=== PATIENT | female | born 1980 | race Hispanic/Latino ===

== ENCOUNTER 2016-11-02 16:26 | Emergency (ER) | payer SELFPAY ==
[2016-11-02] MEDS ORDERED: FENTANYL 250 MCG/5 ML VIAL ONE (16:58)
[2016-11-02] MEDS ORDERED: FENTANYL 100 MCG/2 ML VIAL ONE (17:34)
--- NOTE | 2016-11-02 19:05 | ER NURSING DOCUMENTATION ---
Nurse's Notes [facility] Name:Janneth Akins Age:36 yrs Sex:Female :1980 Arrival Date:11/02/2016 Time:16:26 Bed6 Private MD:No PCP, Identified Diagnosis:Ankle Fracture Presentation: 11/02 16:32 Presenting complaint: Patient states: Fell in park with L ankle injury. Transition of lp care: Home. 16:32 Method Of Arrival: EMS: 430 lp 16:32 Acuity: STEFFEN 3 lp Triage Assessment: 16:32 General: Appears in no apparent distress, Behavior is appropriate for age. Pain: lp Complains of pain in left medial ankle and anterior aspect of left ankle. EENT: No deficits noted. Neuro: No deficits noted. Cardiovascular: No deficits noted. Respiratory: No deficits noted. GI: No deficits noted. : No deficits noted. Derm: No deficits noted. Musculoskeletal: Circulation, motion, and sensation intact Capillary refill < 3 seconds. Injury Description: Fall. Historical: - Allergies: No known drug Allergies; - Home Meds: 1. None - PMHx: None; - PSHx: None; - Tetanus: < 10 years. - Ebola Screening: : Patient negative for fever greater than or equal to 101.5 degrees Fahrenheit, and additional compatible Ebola Virus Disease symptoms. Patient denies exposure to infectious person. Patient denies travel to an Ebola-affected area in the 21 days before illness onset. . - Immunization history: Flu Vaccine None. - Social history: Smoking status: Patient states was never smoker of tobacco. Screenin:35 Infectious Disease Risk None. Abuse screen: Denies threats or abuse. Denies injuries lp from another. Nutritional screening: No deficits noted. Assessment: 16:35 See Triage Assessment done by same RN. lp Vital Signs: 16:34 BP 126 / 57; Pulse 94; Resp 16; Temp 97.5(TE); Pulse Ox 94% on R/A; Weight 81.65 kg; lp Height 5 ft. 0 in. (152.40 cm); Pain 3/10; 19:00 BP 129 / 64; Pulse 77; Resp 15; Pulse Ox 95% on R/A; Pain 4/10; mk2 16:34 Body Mass Index 35.15 (81.65 kg, 152.40 cm) lp ED Course: 16:27 Patient arrived in ED. ds 16:27 No PCP, Identified is Private Physician. ds 16:31 Marcella Powell, RN is Primary Nurse. lp 16:32 Triage completed. lp 16:[address] Kim notified. lp 16:35 Aries Kim MD is Attending Physician. sc 16:35 Valuables Remains with patient Patient has correct armband on for positive lp identification. Bed in low position. Call light in reach. 17:07 Port Xray Completed. ms 18:00 Assist Provider Assist provider with reduction of left ankle using manipulation, Set up tg for procedure. Performed by Aries Kim MD Immobilized with OCL splint, magdi wrap, Patient tolerated well. Crutch training done. 19:00 Road Test. mk2 Administered Medications: 17:24 CANCELLED (Duplicate Order): fentaNYL (PF) 100 mcg IVP once over 3 mins sc 17:29 CANCELLED (Other Intervention Used): fentaNYL (PF) 100 mcg IVP once over 3 mins; tg 0actually IM per patient request. 17:29 Drug: fentanyl 100 mcg; Route: IM; Site: right deltoid; tg 17:57 Follow up: Response: No adverse reaction; Pain is decreased tg 18:51 Drug: HYDROcodone-acetaminophen (5mg/325 mg) 1-2 tabs 1 tabs; Route: PO; tg 18:51 Follow up: Response: Pharmacy closed - take home med pack tg Outcome: 18:24 Discharge ordered by . ok 19:00 Discharged to home via wheelchair. mk2 19:00 Condition: improved 19:00 Discharge instructions given to patient, family, Instructed on discharge instructions, follow up and referral plans. medication usage, no drinking with medication, no driving heavy equipment. 19:05 Patient left the ED. lp 06 15:49 Discharge F/U Call: Unable to reach: non-working number mk2 Signatures: Allan Powell RN RN tg Marcella Powell, RN RN lp Srot, Myla, Reg Reg Aries Gregorio MD MD ok Sheree Holly ms Francisco, Yumi, RN RN mk2 Parag Burgos
--- NOTE | 2016-11-02 19:06 | ER PHYSICIAN DOCUMENTATION ---
Physician Documentation [facility] Name:Janneth Akins Age:36 yrs Sex:Female :1980 Arrival Date:11/02/2016 Time:16:26 Bed6 Private MD:No PCP, Identified ED Aries Ornelas Disposition: 11/02/16 18:24 Discharged to Home/Self Care. Impression: Ankle Fracture. - Condition is Good. - Discharge Instructions: ANKLE FRACTURE (Distal Fibula), closed. - Prescriptions for Hydrocodone- Acetaminophen 5-325 mg Oral Tablet - take 1 tablet by ORAL route every 6 hours As needed; 20 tablet. - Work release form, Medical Reconciliation form form. - Follow up: Private Physician; When: 1 - 2 days; Reason: Continuance of care. - Problem is new. - Symptoms have improved. HPI: 11/02 17:24 This 36 yrs old Female presents to ER via EMS with complaints of Leg Injury - sc RT. 17:24 The patient presents with decreased range of motion, a deformity, an injury. The sc complaints affect the left medial ankle. Context: The problem was sustained outdoors, resulted from a mis-step, the patient is not able to bear weight, the patient is not able to ambulate. Onset: The symptom(s)/episode began/occurred 2 hour(s) ago. Modifying factors: The symptoms are alleviated by nothing. Associated signs and symptoms: The patient has no apparent associated signs or symptoms. Historical: - Allergies: No known drug Allergies; - Home Meds: 1. None - PMHx: None; - PSHx: None; - Tetanus: < 10 years. - Ebola Screening: : Patient negative for fever greater than or equal to 101.5 degrees Fahrenheit, and additional compatible Ebola Virus Disease symptoms. Patient denies exposure to infectious person. Patient denies travel to an Ebola-affected area in the 21 days before illness onset. . - Immunization history: Flu Vaccine None. - Social history: Smoking status: Patient states was never smoker of tobacco. ROS: 17:27 Constitutional: Negative for fever, chills, and weight loss. sc Eyes: Negative for injury, pain, redness, and discharge. Neck: Negative for injury, pain, and swelling. Back: Negative for injury and pain. 17:27 Skin: Negative for injury, rash, and discoloration. sc 17:27 MS/extremity: Positive for injury or acute deformity, decreased range of motion, deformity, pain. Exam: Constitutional: This is a well developed, well nourished patient who is awake, alert, and in no acute distress. Head/Face: Normocephalic, atraumatic. Eyes: Pupils equal round and reactive to light, extra-ocular motions intact. Lids and lashes normal. Conjunctiva and sclera are non-icteric and not injected. Cornea within normal limits. Periorbital areas with no swelling, redness, or edema. Cardiovascular: Regular rate and rhythm with a normal S1 and S2. No gallops, murmurs, or rubs. Normal PMI, no JVD. No pulse deficits. Respiratory: Lungs have equal breath sounds bilaterally, clear to auscultation and percussion. No rales, rhonchi or wheezes noted. No increased work of breathing, no retractions or nasal flaring. 17:27 Back: No spinal tenderness. No costovertebral tenderness. Full range of motion. sc 17:27 Musculoskeletal/extremity: Extremities: grossly normal except: decreased ROM, deformity, ROM: limited active range of motion due to pain, limited passive range of motion due to pain, Circulation is intact in all extremities. Sensation intact. Vital Signs: 16:34 BP 126 / 57; Pulse 94; Resp 16; Temp 97.5(TE); Pulse Ox 94% on R/A; Weight 81.65 kg; lp Height 5 ft. 0 in. (152.40 cm); Pain 3/10; 19:00 BP 129 / 64; Pulse 77; Resp 15; Pulse Ox 95% on R/A; Pain 4/10; mk2 16:34 Body Mass Index 35.15 (81.65 kg, 152.40 cm) lp Procedures: 17:27 Reduction: of the left ankle, using traction, manipulation, Immobilized with OCL nc splint, Patient tolerated well. Post reduction film -. 18:25 Reduction: Post reduction film - reveals normal alignment. sc MDM: 16:35 Patient medically screened. nc 16:36 Patient medically screened. nc 18:25 Differential diagnosis: dislocation, closed fracture. Data reviewed: vital signs, nc nurses notes, radiologic studies, and as a result, I will discharge patient. Counseling: I had a detailed discussion with the patient and/or guardian regarding: the historical points, exam findings, and any diagnostic results supporting the discharge/admit diagnosis, radiology results, the need for outpatient follow up, for a referral to a specialist, to return to the emergency department if symptoms worsen or persist or if there are any questions or concerns that arise at home. 11/03 11:44 Order name: ANKLE; 3[place] [id number] EDMO 11/02 18:29 Order name: ORTHO: Crutches & Training; Complete Time: 18:32 sc 11/02 18:29 Order name: ORTHO: Ice Pack; Complete Time: 18:32 sc Dispensed Medications: 17:24 CANCELLED (Duplicate Order): fentaNYL (PF) 100 mcg IVP once over 3 mins sc 17:29 CANCELLED (Other Intervention Used): fentaNYL (PF) 100 mcg IVP once over 3 mins; tg 0actually IM per patient request. 17:29 Drug: fentanyl 100 mcg; Route: IM; Site: right deltoid; tg 17:57 Follow up: Response: No adverse reaction; Pain is decreased tg 18:51 Drug: HYDROcodone-acetaminophen (5mg/325 mg) 1-2 tabs 1 tabs; Route: PO; tg 18:51 Follow up: Response: Pharmacy closed - take home med pack tg Signatures: Allan Powell RN RN Marcella Powell RN RN Aries Kim MD MD nc
--- NOTE | 2016-11-03 11:03 | RADIOLOGY REPORT ---
Initial views of the left ankle at 1659 hours demonstrates posterior dislocation of the ankle with associated oblique fracture of the distal fibula. Tibia and talus appear intact. A second set of films at 1745 hours demonstrates interval reduction and splinting. IMPRESSION: Fracture dislocation of the left ankle with subsequent reduction and splinting. AMY
== END 2016-11-02 19:05 | disposition home or self-care (01) ==
LOC: ER 16:26
DX: S82.892A Other fracture of left lower leg, initial encounter for closed fracture (principal); W18.49XA Other slipping, tripping and stumbling without falling, initial encounter; Y92.89 Other specified places as the place of occurrence of the external cause; Y93.01 Activity, walking, marching and hiking; Z74.3 Need for continuous supervision
CPT/HCPCS: 29515; 96372; 99284; A0425; A0427; J3010